=== PATIENT | male | born 1970 | race Caucasian/White ===

== ENCOUNTER 2017-12-10 14:01 | Emergency (ER) | payer SELFPAY ==
[~2017-12-10] VITALS: Ht 177.8 cm; Wt 80.0 kg
[~2017-12-10 14:01] MED LIST: DICL-86 PO; METH500T3 PO; Z.0.NO CURRENT MEDS
[2017-12-10 14:12] VITALS: BP 148/87; PULSE 125; RESP 24; O2SAT 95
[2017-12-10] MEDS ORDERED: GABA600T PO (14:20)
[2017-12-10 14:58] LABS: EOSINOPHIL # 0.1 TH/MM3 (0-0.4); EOSINOPHIL % 3.2 % (0.0-4.0); HEMATOCRIT 42.7 % (39.0-51.0); HEMOGLOBIN 14.5 GM/DL (13.0-17.0); LYMPH % 30.3 % (9.0-44.0); LYMPHOCYTE # 1.1 TH/MM3 (1.0-4.8); MEAN CELL VOLUME 85.1 FL (80.0-100.0); MEAN PLATELET VOLUME 7.7 FL (7.0-11.0); MONO % 11.3 % (0.0-8.0); MONOCYTE # 0.4 TH/MM3 (0-0.9); NEUT % 54.2 % (16.0-70.0); PLATELET COUNT 255 TH/MM3 (150-450); RED BLOOD COUNT 5.01 MIL/MM3 (4.50-5.90); RED CELL DISTRIBUTION WIDTH 14.6 % (11.6-17.2); WHITE BLOOD COUNT 3.8 TH/MM3 (4.0-11.0)
[2017-12-10 15:12] LABS: ALBUMIN 3.6 GM/DL (3.4-5.0); ALT (GPT) 16 U/L (12-78); AST (GOT) 14 U/L (15-37); BICARBONATE 25.6 MEQ/L (21.0-32.0); BLOOD UREA NITROGEN 11 MG/DL (7-18); CALCIUM 8.5 MG/DL (8.5-10.1); CHLORIDE 104 MEQ/L (98-107); GLOMERULAR FILTRATION RATE 80 ML/MIN (>89); GLUCOSE,RANDOM 146 MG/DL (74-106); SODIUM (NA) 138 MEQ/L (136-145)
[2017-12-10 15:14] LABS: ALKALINE PHOSPHATASE 67 U/L (45-117); TOTAL BILIRUBIN ADULT 0.8 MG/DL (0.2-1.0); TOTAL PROTEIN 7.7 GM/DL (6.4-8.2)
[2017-12-10 15:38] VITALS: BP 134/84; PULSE 87; PULSE 98; RESP 18; O2SAT 97
--- NOTE | 2017-12-10 16:12 | PD ---
HPI Chief Complaint: OD/ Ingestion Time Seen by Provider: 14:14 Travel History International Travel<30 days: No Contact w/Intl Traveler<30days: No Traveled to known affect area: No History of Present Illness HPI 47-year-old male was found in his car unresponsive and cyanotic. When EMS arrived and they found him like that they put a left EJ and injected 0.4 mg of Narcan. Patient immediately became conscious and change from GCS 3 to GCS 15. At that point he mentioned to the paramedics that his friend had given him a pill that he was injecting and he does not remember after that. Patient was brought in awake and he continued to tell me the same story. Patient was tachycardic upon arrival. Patient denies smoking any drugs and continues to say that he does not know what pills he injected. This happened half an hour prior to arrival. [facility] Past Medical History Narrative Medical List of his past medical, surgical, social and family history is reviewed from the nursing note. Diminished Hearing: No Medical other: Yes (IV DRUG USE ) Musculoskeletal: Yes (BACK, L FEMUR FX ) Immunizations Current: Yes Tetanus Vaccination: < 5 Years Influenza Vaccination: No Past Surgical History Other Surgery: Yes (RIGHT 4TH DIGIT FINGER) Social History Alcohol Use: No Tobacco Use: Yes (1/2 P[ACK A DAY FOR 8 YEARS) Substance Use: Yes (IV DRUGS ONCE IN A WHILE ) Allergies-Medications (Allergen,Severity, Reaction): Coded Allergies: No Known Allergies (Verified Adverse Reaction, Unknown, 12/10/17) Comments No known drug allergies Reported Meds & Prescriptions Reported Meds & Active Scripts Active Reported Gabapentin 600 Mg Tab 600 Mg PO BID Narrative Medication List of his home medications reviewed from the nursing note Review of Systems Except as stated in HPI: all other systems reviewed are Neg Physical Exam Narrative GENERAL: Awake, alert, no obvious distress SKIN: Focused skin assessment warm/dry. HEAD: Atraumatic. Normocephalic. EYES: Pupils equal and round. No scleral icterus. No injection or drainage. ENT: No nasal bleeding or discharge. Mucous membranes pink and moist. NECK: Trachea midline. No JVD. CARDIOVASCULAR: Regular rate and rhythm. No murmur appreciated. RESPIRATORY: No accessory muscle use. Clear to auscultation. Breath sounds equal bilaterally. GASTROINTESTINAL: Abdomen soft, non-tender, nondistended. Hepatic and splenic margins not palpable. MUSCULOSKELETAL: No obvious deformities. No clubbing. No cyanosis. No edema. NEUROLOGICAL: Awake and alert. No obvious cranial nerve deficits. Motor grossly within normal limits. Normal speech. PSYCHIATRIC: Appropriate mood and affect; insight and judgment normal. Data Data Last Documented VS Vital Signs Date Time Temp Pulse Resp B/P (MAP) Pulse Ox O2 Delivery O2 Flow Rate FiO2 12/10/17 17:17 87 18 141/80 (100) 97 12/10/17 14:20 Room Air Orders Orders Complete Blood Count With Diff (12/10/17 14:15) Comprehensive Metabolic Panel (12/10/17 14:15) Drug Screen, Random Urine (12/10/17 14:15) Electrocardiogram (12/10/17 ) Glass Bulb Machine Adjuster / Telemetry LONG.Q8H (12/10/17 14:15) Ed Discharge Order (12/10/17 16:48) Labs Laboratory Tests Test 12/10/17 14:30 12/10/17 14:45 White Blood Count 3.8 TH/MM3 Red Blood Count 5.01 MIL/MM3 Hemoglobin 14.5 GM/DL Hematocrit 42.7 % Mean Corpuscular Volume 85.1 FL Mean Corpuscular Hemoglobin 29.0 PG Mean Corpuscular Hemoglobin Concent 34.0 % Red Cell Distribution Width 14.6 % Platelet Count 255 TH/MM3 Mean Platelet Volume 7.7 FL Neutrophils (%) (Auto) 54.2 % Lymphocytes (%) (Auto) 30.3 % Monocytes (%) (Auto) 11.3 % Eosinophils (%) (Auto) 3.2 % Basophils (%) (Auto) 1.0 % Neutrophils # (Auto) 2.0 TH/MM3 Lymphocytes # (Auto) 1.1 TH/MM3 Monocytes # (Auto) 0.4 TH/MM3 Eosinophils # (Auto) 0.1 TH/MM3 Basophils # (Auto) 0.0 TH/MM3 CBC Comment DIFF FINAL Differential Comment Blood Urea Nitrogen 11 MG/DL Creatinine 1.00 MG/DL Random Glucose 146 MG/DL Total Protein 7.7 GM/DL Albumin 3.6 GM/DL Calcium Level 8.5 MG/DL Alkaline Phosphatase 67 U/L Aspartate Amino Transf (AST/SGOT) 14 U/L Alanine Aminotransferase (ALT/SGPT) 16 U/L Total Bilirubin 0.8 MG/DL Sodium Level 138 MEQ/L Potassium Level 4.0 MEQ/L Chloride Level 104 MEQ/L Carbon Dioxide Level 25.6 MEQ/L Anion Gap 8 MEQ/L Estimat Glomerular Filtration Rate 80 ML/MIN Urine Opiates Screen POS Urine Barbiturates Screen NEG Urine Amphetamines Screen NEG Urine Benzodiazepines Screen POS Urine Cocaine Screen NEG Urine Cannabinoids Screen POS MDM Medical Decision Making Medical Screen Exam Complete: Yes Emergency Medical Condition: Yes Medical Record Reviewed: Yes Interpretation(s) Twelve-lead EKG was reviewed by me. Normal sinus rhythm, normal axis, tachycardia, nonspecific ST-T wave changes. Heart rate of 120 bpm. Differential Diagnosis Opiate overdose, IV drug abuse Narrative Course 4:10 PM patient will be observed until 5 PM and discharge. Blood test results are back and within normal limits. Patient was initially tachycardic upon arrival. Currently his heart rate has come down to the 80s. Procedures EKG Prior to Arrival: No Diagnosis Primary Impression: Opiate overdose Qualified Codes: T40.601A - Poisoning by unspecified narcotics, accidental ( unintentional), initial encounter Additional Impressions: IV drug abuse Polysubstance abuse Additional Instructions: Should not be shooting drugs since it is extremely dangerous. Please check yourself into [facility] for drug rehab. Med/Other Pt SpecificInfo: No Change to Meds Disposition: 01 DISCHARGE HOME Condition: Stable Fannie Whitt MD Dec 10, 2017 16:12
[2017-12-10 17:17] VITALS: BP 141/80
--- NOTE | 2017-12-11 16:48 | EKG ---
Date Performed: 12/10/2017 Time Performed: 14:17:07 PTAGE: 47 years EKG: SINUS TACHYCARDIA POSSIBLE INFERIOR MYOCARDIAL INFARCTION ABNORMAL RHYTHM ECG NO PREVIOUS TRACING DOCTOR: Holly Gracia Interpretating Date/Time 12/11/2017 16:45:01
== END 2017-12-10 17:18 | disposition home or self-care (01) ==
LOC: NEPD 14:01
DX: T40.601A Poisoning by unspecified narcotics, accidental (unintentional), initial encounter (principal); R00.0 Tachycardia, unspecified; R94.31 Abnormal electrocardiogram [ECG] [EKG]; F19.10 Other psychoactive substance abuse, uncomplicated; F17.210 Nicotine dependence, cigarettes, uncomplicated; F12.90 Cannabis use, unspecified, uncomplicated
CPT/HCPCS: 80053; 80307; 85025; 93005; 99284